=== PATIENT | female | born 1970 | race Caucasian/White ===

== ENCOUNTER 2018-11-26 11:28 | Emergency (ER) | payer OTHER ==
[~2018-11-26] VITALS: Ht 170.2 cm; Wt 81.7 kg
[2018-11-26] MEDS ORDERED: EPIPEN0.3 MG/0.3 IM (13:26)
[2018-11-26] MEDS ORDERED: PRED20 PO (13:26)
== END 2018-11-26 14:16 | disposition home or self-care (01) ==
LOC: ER 11:28
DX: S90.851A Superficial foreign body, right foot, initial encounter (principal); H57.89 Other specified disorders of eye and adnexa; Z91.030 Bee allergy status; F17.210 Nicotine dependence, cigarettes, uncomplicated; W27.3XXA Contact with needle (sewing), initial encounter
CPT/HCPCS: 73630; 96374; 96375; 99283-25; J1200; J2930